=== PATIENT | female | born 1950 | race Caucasian/White ===

== ENCOUNTER 2017-08-08 18:07 | Inpatient (IN) ==
[2017-08-13] MEDS ORDERED: Furosemide 40 MG TABLET PO PRN (16:16)
[2017-08-13] MEDS ORDERED: Dextrose Gel 15 GM/37.5 ML TUBE PO PRN ×2 (16:25)
[2017-08-13] MEDS ORDERED: D5% in Water 1,000 ML IVC PRN (16:25)
[2017-08-13] MEDS ORDERED: *HR* Dextrose 50 % in Water (Syg) 50 ML SYRINGE IVP PRN (16:25)
[2017-08-13] MEDS: Gabapentin 100 MG CAPSULE PO SCH (19:56)
[2017-08-13] MEDS: Linezolid 600 MG TABLET PO SCH (20:15)
[2017-08-14] MEDS: *HR* HYDROcodone/Acet 5/325 mg TABLET PO PRN (09:26)
[2017-08-14] MEDS: Linezolid 600 MG TABLET PO SCH ×2 (09:27→20:43)
[2017-08-14] MEDS: Fluticasone Propionate Nasal 50 MCG/SPRAY BOTTLE NS SCH (09:28)
[2017-08-14] MEDS: Silvasorb 44.4 ML TUBE TP SCH (09:28)
[2017-08-14] MEDS: Aspirin Enteric Coated 81 MG Tablet PO SCH (13:55)
--- NOTE | 2017-08-14 15:23 | Internal Med History&Physical ---
Date of Encounter: 08/14/17 Time of Encounter: 15:19 Assessment and Plan (1) Morbid obesity with BMI of 50.0-59.9, adult Current visit: Yes Status: Chronic provide education. (2) UTI (urinary tract infection) Current visit: Yes Status: Acute continue Cipro. will monitor. Qualifiers: Urinary tract infection type: acute pyelonephritis Qualified Code(s): N10 - Acute pyelonephritis (3) Atrial fibrillation Current visit: Yes Status: Chronic rate and rythm stable. Qualifiers: Atrial fibrillation type: paroxysmal Qualified Code(s): I48.0 - Paroxysmal atrial fibrillation (4) Diabetes Current visit: Yes Status: Chronic monitor FSBS> Qualifiers: Diabetes mellitus type: type 2 Diabetes mellitus care home insulin use: without termite exterminator use Diabetes mellitus complication status: with hyperglycemia Qualified Code(s): E11.65 - Type 2 diabetes mellitus with hyperglycemia Internal Medicine - H&P: HPI Admitted From: Intrahospital Transfer Plans for Post Hospital Care: Home History of present illness: Ms. Doherty is a 66 year old female with past medical history that includes arthritis, asthma, atrial fibrillation, CAD with prior Stent. Multiple TIAs, CHF, COPD, diabetes 2, Gerd, kidney stones, anxiety, depression, panic disorder. Also has history of recurrent UTIs. Presented to [facility] with complains of suprapubic and flank pain. Was found to have a stage II sacral ulcer. CT of pelvis and abdomen revealed presence of right- sided nephrolithiasis as well as cystitis. Was started on cefipime. denies fever, chills, NVD. denies flank pain. Past Med Surg Social Fam HX - Past Medical History Medical history: arthritis, asthma, atrial fibrillation, CHF, COPD, diabetes, GERD, kidney stones, other Psychiatric history: anxiety, depression, panic disorder - Past Surgical History Surgical History: angioplasty/stent, cholecystectomy, hysterectomy - Social History Smoking Status: Never smoker Smokeless Tobacco Status: No Alcohol use: none Drug use: none - Family History Brother Living Status: Still Living Hx Family Cardiac Disorders: Yes (HTN) Hx Family Endocrine Disorder: Yes (Diabetes) Mother Living Status: Hx Family Cardiac Disorders: Yes (htn) Hx Family Endocrine Disorder: Yes (dm) Father Living Status: Hx Family Cardiac Disorders: Yes (CABG x3 HTN diabetes) Hx Family Respiratory Disorders: No Hx Family Cancer: No Hx Family GI Disorders: No Hx Family Endocrine Disorder: Yes Hx Family Neuromuscular Disorders: No Hx Family Neurologic Disorders: No Hx Family HEENT Disorders: No Hx Family Autoimmune Disorders: No Internal Medicine - H&P: Meds Promethazine [Phenergan] 25 mg PO Q6HR PRN 02/19/17 [History] HYDROcodone/Acet 5/325 mg [[place] 5-325 mg] 1 tab PO Q6H PRN #28 tablet 02/23/17 [Rx] Fluticasone Propionate [Allergy Relief] 2 spr NS DAILY 08/06/17 [History] Furosemide [Lasix] 40 mg PO DAILY PRN 08/06/17 [History] Carvedilol [Coreg] 3.125 mg PO BIDWM #10 tablet 08/10/17 [Rx] Aspirin [Lo-Dose Aspirin EC] 81 mg PO DAILY 08/13/17 [History] 3 Allergy/AdvReac Type Severity Reaction Status Date / Time levofloxacin [From Levaquin] Allergy Hives Verified 05/30/16 08:50 Penicillins Allergy Blister Verified 05/30/16 08:50 prednisone Allergy See Verified 05/30/16 08:50 Comments Sulfa (Sulfonamide Allergy Hives Verified 05/30/16 08:50 Antibiotics) egg AdvReac Severe Throat Verified 05/30/16 08:50 swelling nitrofurantoin AdvReac Severe Bruising Verified 05/30/16 08:50 [From Macrobid] on arms All Systems PM: A 10-system review of systems was performed and is negative for pertinent findings except as documented above in the HPI. - Constitutional Constitutional: no chills, no fever(s), no night sweats - EENT Eyes: no change in vision, no discharge, no pain, no photophobia Ears: no ear discharge, no ear pain, no tinnitus Nose, mouth and throat: no dysphagia, no nasal discharge, no neck pain, no sore throat - Cardiovascular Cardiovascular ROS IM: no chest pain, no diaphoresis, no dyspnea, no lightheadedness, no palpitations, no syncope - Respiratory Respiratory: no cough, no dyspnea, no wheezing, no excessive phlegm production - Gastrointestinal Gastrointestinal: no abdominal pain, no diarrhea, no hematemesis, no hematochezia, no melena, no nausea, no vomiting - Genitourinary Genitourinary: no change in urinary stream, no dysuria, no flank pain, no hematuria - Musculoskeletal Musculoskeletal ROS IM: no numbness, no tingling - Integumentary Integumentary IM: no rash, no unusual bruising - Neurological Neurological ROS: no confusion, no convulsions, no focal weakness, no numbness, no tingling, no tremor(s) - Hematologic/Lymphatic Hematologic/Lymphatic: no easy bruising - Constitutional Vitals: Temp Pulse Resp BP Pulse Ox 98.2 F 84 16 96/62 95 08/14/17 12:00 08/14/17 12:00 08/14/17 12:00 08/14/17 12:00 08/14/17 12:00 General appearance: Present: cooperative, A&O X 3, morbidly obese, pleasant, answers questions appropriately - Head Head exam: Present: atraumatic, normocephalic - Eye Eye exam: Present: PERRL, conjuntiva pink, sclera anicteric Pupils: Present: PERRL - Neck Neck exam general surgery: Present: supple, trachea midline. Absent: lymphadenopathy - Respiratory Respiratory exam: Present: CTAB. Absent: accessory muscle use, rales, rhonchi, wheezes - Cardiovascular Cardiovascular exam: Present: RRR, +S1, +S2. Absent: diastolic murmur, gallop, rubs, systolic murmur - GI/Abdominal GI/Abdominal exam: Present: normal bowel sounds, soft, no peritoneal signs. Absent: distended, tenderness - Additional comments: no CVA tenderness. - Extremities Exam Extremities exam: Present: warm, radial pulses palpable and symmetrical. Absent : calf tenderness, cyanotic, pedal edema - Neurological Exam Neurological exam: Present: CN II-XII intact, oriented X3, no focal deficits. Absent: pronater drift, facial droop, speech deficit - Skin Skin exam: Present: dry, intact
--- NOTE | 2017-08-14 16:14 | Electrocardiograph Report ---
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
[2017-08-14] MEDS: Gabapentin 100 MG CAPSULE PO SCH (20:42)
[2017-08-15] MEDS: *HR* HYDROcodone/Acet 5/325 mg TABLET PO PRN (08:52)
[2017-08-15] MEDS: Silvasorb 44.4 ML TUBE TP SCH (08:53)
[2017-08-15] MEDS: Aspirin Enteric Coated 81 MG Tablet PO SCH (08:53)
[2017-08-15] MEDS: Linezolid 600 MG TABLET PO SCH ×2 (08:53→21:24)
[2017-08-15] MEDS: Fluticasone Propionate Nasal 50 MCG/SPRAY BOTTLE NS SCH (08:54)
--- NOTE | 2017-08-15 14:58 | Internal Med Progress Note ---
Date of Encounter: 08/15/17 Time of Encounter: 14:57 - Subjective Interval history: See note from earlier today. Will also add Zofran as nausea persists. - Constitutional Vitals: Temp Pulse Resp BP Pulse Ox 97.9 F 75 16 110/65 97 08/15/17 07:28 08/15/17 07:28 08/15/17 07:28 08/15/17 07:28 08/15/17 07:28 General appearance: Present: cooperative, A&O X 3, morbidly obese, pleasant, answers questions appropriately - VTE Documentation of Mechanical Device: Graduated compression elastic hosiery Consult Discharge Plan - Plan Referrals: NONE,PCP [Primary Care Provider] -
[2017-08-15 15:49] LABS: Basophils % 0.5 %; Eosinophils # 0.5 K/mcL (0.0-0.6); Eosinophils % 6.3 %; Hematocrit 35.8 % (35.3-44.9); Hemoglobin 12.2 g/dL (11.5-15.4); Immature Granulocytes % 0.2 % (0-4); Lymphocytes # 2.1 K/mcL (0.6-4.6); Lymphocytes % 25.5 %; Mean Corpuscular HGB Conc 34.1 g/dL (31.6-35.5); Mean Corpuscular Volume 90.9 fL (83.0-100.0); Mean Platelet Volume 10.3 fL (9.4-12.4); Monocytes # 0.6 K/mcL (0.0-1.3); Monocytes % 7.6 %; Neutrophils # 4.9 K/mcL (1.6-8.9); Platelet Count 146 K/mcL (140-400); Red Blood Count 3.94 M/mcL (3.82-4.97); Red Cell Distribution Width 14.8 % (11.5-14.5); Segmented Neutrophils % 59.9 %
[2017-08-15 16:17] LABS: BUN/Creatinine Ratio 18 (6-26); Blood Urea Nitrogen 12 mg/dL (8-23); Calcium 8.9 mg/dL (8.6-10.3); Carbon Dioxide 19 mEq/L (23-29); Chloride 109 mEq/L (98-107); Glucose 108 mg/dL (70-105); Osmolality,Calculated 284 (280-300); Potassium 3.4 mEq/L (3.5-5.1); Sodium 137 mEq/L (136-145); eGFR For African Americans > 60 (> 60); eGFR For Non-African Americans > 60 (> 60)
[2017-08-15] MEDS: Gabapentin 100 MG CAPSULE PO SCH (21:24)
[2017-08-16 07:34] LABS: BUN/Creatinine Ratio 19 (6-26); Blood Urea Nitrogen 11 mg/dL (8-23); Calcium 8.5 mg/dL (8.6-10.3); Carbon Dioxide 21 mEq/L (23-29); Chloride 110 mEq/L (98-107); Glucose 107 mg/dL (70-105); Osmolality,Calculated 286 (280-300); Potassium 3.2 mEq/L (3.5-5.1); Sodium 138 mEq/L (136-145); eGFR For African Americans > 60 (> 60); eGFR For Non-African Americans > 60 (> 60)
[2017-08-16 07:46] LABS: Basophils % 0.5 %; Eosinophils # 0.5 K/mcL (0.0-0.6); Eosinophils % 6.8 %; Hematocrit 31.3 % (35.3-44.9); Hemoglobin 10.8 g/dL (11.5-15.4); Immature Granulocytes % 0.3 % (0-4); Lymphocytes # 2.2 K/mcL (0.6-4.6); Lymphocytes % 30.3 %; Mean Corpuscular HGB Conc 34.5 g/dL (31.6-35.5); Mean Corpuscular Hemoglobin 31.1 pg (28.0-33.3); Mean Corpuscular Volume 90.2 fL (83.0-100.0); Monocytes # 0.6 K/mcL (0.0-1.3); Monocytes % 8.2 %; Neutrophils # 3.9 K/mcL (1.6-8.9); Platelet Count 150 K/mcL (140-400); Red Blood Count 3.47 M/mcL (3.82-4.97); Red Cell Distribution Width 14.7 % (11.5-14.5); Segmented Neutrophils % 53.9 %
[2017-08-16] MEDS: Fluticasone Propionate Nasal 50 MCG/SPRAY BOTTLE NS SCH (09:05)
[2017-08-16] MEDS: Linezolid 600 MG TABLET PO SCH ×3 (09:06→22:41)
[2017-08-16] MEDS: Aspirin Enteric Coated 81 MG Tablet PO SCH ×2 (09:08→18:04)
[2017-08-16] MEDS: Silvasorb 44.4 ML TUBE TP SCH (09:09)
[2017-08-16] MEDS ORDERED: Magnesium Sulfate 1 GM in D5% in Water 100 ML IVPB ONE (13:02)
--- NOTE | 2017-08-16 13:27 | Internal Med Progress Note ---
Date of Encounter: 08/16/17 Time of Encounter: 13:25 - Assessment and plan (1) Pyelonephritis Current Visit: Yes Status: Acute Assessment and plan: No acute issues. Patient does continue to complain of nausea and abdominal cramping. Patient to have lithotripsy in the upcoming week. Afebrile. We will continue with current plan of care (2) Nausea Current Visit: Yes Status: Chronic Assessment and plan: Patient continues to have intermittent nausea and this morning had vomited. We will continue with Zofran when necessary. We will obtain lipase/amylase and morning labs (3) Physical deconditioning Current Visit: No Status: Acute Assessment and plan: Patient continues with generalized weakness. No focal neurological deficits noted. She has been missing some of her physical therapy due to nausea. Continue with current plan of care (4) Chronic diastolic (congestive) heart failure Current Visit: No Status: Chronic Assessment and plan: No acute issues. Lungs are clear throughout. No complaints of dyspnea or productive cough. No palpitations. We will continue with current medications. - Subjective Interval history: Patient appears relaxed, but complaints of intermittent nausea. Patient states that this morning she became nauseated after breakfast and vomited. States that she continues to have intermittent nausea throughout the day. Patient also complains about burning type pain to her her lips and tongue, which appears very dry. Patient states that she occasionally has some abdominal cramping, stating that she continues to have some constipation. Patient does state that she had bowel movement yesterday. Patient states that physical therapy has been going well and that prior to admission she had difficulty walking. Patient reportedly did not do therapy today because of nausea. Patient is being prepared for a lithotripsy in the upcoming week. Afebrile - Constitutional Vitals: Temp Pulse Resp BP Pulse Ox 98.1 F 84 20 148/80 98 08/16/17 07:57 08/16/17 07:57 08/16/17 07:57 08/16/17 08:56 08/16/17 07:57 General appearance: Present: cooperative, A&O X 3, morbidly obese, pleasant, answers questions appropriately - Head Head exam: Present: atraumatic, normocephalic Additional comments: Lips and oral mucosa are very dry, but normal in color - Eye Eye exam: Present: PERRL, conjuntiva pink, sclera anicteric Pupils: Present: PERRL - Neck Neck exam general surgery: Present: supple, trachea midline. Absent: lymphadenopathy - Respiratory Respiratory exam: Present: CTAB. Absent: accessory muscle use, rales, rhonchi, wheezes Additional comments: Diminished breath sounds to bases. Otherwise respiratory effort is relaxed - Cardiovascular Cardiovascular exam: Present: RRR, +S1, +S2. Absent: diastolic murmur, gallop, rubs, systolic murmur - GI/Abdominal GI/Abdominal exam: Present: normal bowel sounds, soft, no peritoneal signs. Absent: distended, tenderness Additional comments: Abdomen is large, soft and nondistended with bowel sounds all quadrants - Extremities Exam Extremities exam: Present: warm, radial pulses palpable and symmetrical. Absent : calf tenderness, cyanotic, pedal edema - Neurological Exam Neurological exam: Present: CN II-XII intact, oriented X3, no focal deficits. Absent: pronater drift, facial droop, speech deficit - Skin Skin exam: Present: dry, intact Internal Medicine: Result - Labs CBC & Chem 7: 08/16/17 07:07 08/16/17 07:07 Labs: Short CBC 08/15/17 08/16/17 Range/Units 15:44 07:07 WBC 8.2 7.3 (4.3-11.1) K/mcL Hgb 12.2 10.8 L (11.5-15.4) g/dL Hct 35.8 31.3 L (35.3-44.9) % Plt Count 146 150 (140-400) K/mcL Neutrophils # 4.9 3.9 (1.6-8.9) K/mcL BMP 08/15/17 08/16/17 15:44 07:07 Sodium 137 138 Potassium 3.4 L 3.2 L Chloride 109 H 110 H Carbon Dioxide 19 L 21 L BUN 12 11 Creatinine 0.66 0.59 L Glucose 108 H 107 H Calcium 8.9 8.5 L - VTE Documentation of Mechanical Device: Graduated compression elastic hosiery Consult Discharge Plan - Plan Referrals: NONE,PCP [Primary Care Provider] -
[2017-08-16] MEDS: *HR* Heparin 5,000 UNIT/ML VIAL SQ SCH ×2 (13:49→22:41)
[2017-08-16] MEDS: Gabapentin 100 MG CAPSULE PO SCH (22:41)
[2017-08-17] MEDS: *HR* Heparin 5,000 UNIT/ML VIAL SQ SCH ×3 (07:00→21:54)
[2017-08-17] MEDS: *HR* HYDROcodone/Acet 5/325 mg TABLET PO PRN (09:36)
[2017-08-17] MEDS: Linezolid 600 MG TABLET PO SCH ×3 (09:36→21:54)
[2017-08-17] MEDS: Aspirin Enteric Coated 81 MG Tablet PO SCH (09:38)
[2017-08-17] MEDS: Fluticasone Propionate Nasal 50 MCG/SPRAY BOTTLE NS SCH (09:40)
[2017-08-17] MEDS: Silvasorb 44.4 ML TUBE TP SCH (09:42)
--- NOTE | 2017-08-17 10:57 | Internal Med Progress Note ---
Date of Encounter: 08/17/17 Time of Encounter: 10:55 - Assessment and plan (1) Pyelonephritis Current Visit: Yes Status: Acute Assessment and plan: No acute issues. Patient does continue to complain of nausea. Patient denies any dysuria. We will continue on Zyvox for UTI.. Patient to have lithotripsy in the upcoming week. Afebrile. We will continue with current plan of care (2) Nausea Current Visit: Yes Status: Chronic Assessment and plan: Patient continues to have intermittent nausea. No reported vomiting. We will continue with Zofran when necessary. Lipase/amylase was normal on morning labs. (3) Chronic diastolic (congestive) heart failure Current Visit: No Status: Chronic Assessment and plan: No acute issues. Lungs are clear throughout. No complaints of dyspnea or productive cough. No palpitations. We will continue with current medications. - Time Spent With Patient less than 15 minutes - Subjective Interval history: Patient appears relaxed, but complaints of intermittent nausea. Patient denies any vomiting since yesterday. Denies any abdominal cramping or change in bowel habits. Patient's labs this morning showed amylase/lipase normal. Patient with complaints of slight generalized discomforts. Denies any shortness of breath. Patient being prepared for upcoming lithotripsy. - Constitutional Vitals: Temp Pulse Resp BP Pulse Ox 97.9 F 78 17 116/79 96 08/17/17 07:45 08/17/17 07:45 08/17/17 07:45 08/17/17 07:45 08/17/17 07:45 General appearance: Present: cooperative, A&O X 3, morbidly obese, pleasant, answers questions appropriately - Head Head exam: Present: atraumatic, normocephalic Additional comments: Patient's lips and oral mucosa are very dry - Eye Eye exam: Present: PERRL, conjuntiva pink, sclera anicteric Pupils: Present: PERRL - Neck Neck exam general surgery: Present: supple, trachea midline. Absent: lymphadenopathy - Respiratory Respiratory exam: Present: CTAB. Absent: accessory muscle use, rales, rhonchi, wheezes - Cardiovascular Cardiovascular exam: Present: irregular rhythm, RRR, +S1, +S2. Absent: diastolic murmur, gallop, rubs, systolic murmur Additional comments: Patient's ventricular rate is less than 80 bpm. - GI/Abdominal GI/Abdominal exam: Present: normal bowel sounds, soft, no peritoneal signs. Absent: distended, tenderness - Extremities Exam Extremities exam: Present: pedal edema, warm, radial pulses palpable and symmetrical. Absent: calf tenderness, cyanotic Additional comments: Bilateral legs with +2 edema - Neurological Exam Neurological exam: Present: CN II-XII intact, oriented X3, no focal deficits. Absent: pronater drift, facial droop, speech deficit - Skin Skin exam: Present: dry, intact Internal Medicine: Result - Labs CBC & Chem 7: 08/16/17 07:07 08/16/17 07:07 - VTE Documentation of Mechanical Device: Graduated compression elastic hosiery Consult Discharge Plan - Plan Referrals: NONE,PCP [Primary Care Provider] -
[2017-08-17 11:25] LABS: Alanine Aminotransferase 21 Units/L (7-52); Albumin 2.6 g/dL (3.5-5.7); Albumin/Globulin Ratio 0.9 (1.1-2.2); Alkaline Phosphatase 98 Units/L (34-104); Aspartate Amino Transferase 39 Units/L (13-39); BUN/Creatinine Ratio 18 (6-26); Bilirubin,Total 0.6 mg/dL (0.3-1.0); Blood Urea Nitrogen 10 mg/dL (8-23); Calcium 8.5 mg/dL (8.6-10.3); Carbon Dioxide 18 mEq/L (23-29); Chloride 110 mEq/L (98-107); Globulin 2.9 g/dL (2.4-3.5); Glucose 106 mg/dL (70-105); Osmolality,Calculated 287 (280-300); Potassium 3.2 mEq/L (3.5-5.1); Sodium 139 mEq/L (136-145); Total Protein 5.5 g/dL (6.4-8.9); eGFR For African Americans > 60 (> 60); eGFR For Non-African Americans > 60 (> 60)
[2017-08-17] MEDS: Gabapentin 100 MG CAPSULE PO SCH (21:54)
[2017-08-17] MEDS: Nystatin POWDER 30 GM BOTTLE TP SCH (21:54)
[2017-08-18 05:37] LABS: Hematocrit 31.6 % (35.3-44.9); Hemoglobin 10.8 g/dL (11.5-15.4); Mean Corpuscular HGB Conc 34.2 g/dL (31.6-35.5); Mean Corpuscular Hemoglobin 30.8 pg (28.0-33.3); Mean Platelet Volume 10.7 fL (9.4-12.4); Platelet Count 134 K/mcL (140-400); Red Blood Count 3.51 M/mcL (3.82-4.97)
[2017-08-18 06:02] LABS: Alanine Aminotransferase 22 Units/L (7-52); Albumin 2.6 g/dL (3.5-5.7); Albumin/Globulin Ratio 0.9 (1.1-2.2); Alkaline Phosphatase 100 Units/L (34-104); Aspartate Amino Transferase 41 Units/L (13-39); BUN/Creatinine Ratio 15 (6-26); Bilirubin,Total 0.6 mg/dL (0.3-1.0); Blood Urea Nitrogen 9 mg/dL (8-23); Calcium 8.3 mg/dL (8.6-10.3); Carbon Dioxide 21 mEq/L (23-29); Chloride 111 mEq/L (98-107); Glucose 106 mg/dL (70-105); Magnesium 1.6 mg/dL (1.6-2.6); Osmolality,Calculated 287 (280-300); Potassium 3.2 mEq/L (3.5-5.1); Sodium 139 mEq/L (136-145); Total Protein 5.6 g/dL (6.4-8.9); eGFR For African Americans > 60 (> 60); eGFR For Non-African Americans > 60 (> 60)
[2017-08-18] MEDS: *HR* Heparin 5,000 UNIT/ML VIAL SQ SCH ×3 (06:08→22:25)
[2017-08-18] MEDS ORDERED: Magnesium Oxide 400 MG TABLET PO SCH (09:00)
[2017-08-18] MEDS: Nystatin POWDER 30 GM BOTTLE TP SCH ×2 (09:28→19:42)
[2017-08-18] MEDS: Fluticasone Propionate Nasal 50 MCG/SPRAY BOTTLE NS SCH (09:28)
[2017-08-18] MEDS: Silvasorb 44.4 ML TUBE TP SCH (09:28)
[2017-08-18] MEDS: Linezolid 600 MG TABLET PO SCH ×2 (09:28→19:42)
--- NOTE | 2017-08-18 14:53 | Internal Med Progress Note ---
Date of Encounter: 08/18/17 Time of Encounter: 14:51 - Assessment and plan (1) UTI (urinary tract infection) due to urinary indwelling catheter Current Visit: Yes Status: Acute Assessment and plan: This is possibly the etiology of her current symptoms. We will continue as planned. Biotics until S wall is scheduled for middle of next week. Qualifiers: Indwelling urinary catheter type: indwelling urethral catheter Encounter type: initial encounter Qualified Code(s): T83.511A - Infection and inflammatory reaction due to indwelling urethral catheter, initial encounter; N39.0 - Urinary tract infection, site not specified; N39.0 - Urinary tract infection, site not specified (2) Acute kidney injury Current Visit: Yes Status: Acute Assessment and plan: This may be duplicated. Will follow. To be rechecked on Sunday. Will give dose of Lasix and see how she responds. (3) Diabetes Current Visit: Yes Status: Chronic Assessment and plan: Clinically stable. We will continue home regimen and follow. Oral intake is questionable given her nausea. Qualifiers: Diabetes mellitus type: type 2 Diabetes mellitus intermission coordinator insulin use: without care home use Diabetes mellitus complication status: with hyperglycemia Qualified Code(s): E11.65 - Type 2 diabetes mellitus with hyperglycemia - Time Spent With Patient Clinically stable. We will continue home regimen and follow. Repeated on Sunday. 25 - 35 minutes - Subjective Interval history: Still with nausea which nursing is uncertain of etiology. Not related to medicines. We will continue antibiotics until ESWL, scheduled for Sunday - Constitutional Vitals: Temp Pulse Resp BP Pulse Ox 97.6 F 89 20 102/58 93 08/18/17 08:40 08/18/17 08:40 08/18/17 08:40 08/18/17 08:40 08/18/17 08:40 General appearance: Present: cooperative, pleasant, answers questions appropriately Exam: Examination: (Except as mentioned above): General: In no apparent distress. Alert and oriented 3. Nondiaphoretic. Head: Atraumatic and normocephalic. Respiratory: No use of accessory muscles. Lungs are clear throughout. Normal airflow. Cardiovascular: Regular rate and rhythm without murmur appreciated. Abdomen: Bowel sounds are normal. No hepatosplenomegaly mass or tenderness appreciated. Severe tenderness noted but this is totally normal and patient is distracted. Tenderness is therefore not definite. Obese and therefore difficult to palpate deeply. Patient is examined upright in chair and this also limits exam. Extremities: No cyanosis or clubbing but seems that edema is slightly worse. Skin: Warm and non-diaphoretic with no new lesions noted. Internal Medicine: Result - Labs CBC & Chem 7: 08/18/17 05:15 08/18/17 05:15 Labs: Short CBC 08/18/17 Range/Units 05:15 WBC 6.3 (4.3-11.1) K/mcL Hgb 10.8 L D (11.5-15.4) g/dL Hct 31.6 L (35.3-44.9) % Plt Count 134 L (140-400) K/mcL BMP 08/18/17 05:15 Sodium 139 Potassium 3.2 L Chloride 111 H Carbon Dioxide 21 L BUN 9 Creatinine 0.61 Glucose 106 H Calcium 8.3 L Liver Function 08/18/17 Range/Units 05:15 Total Bilirubin 0.6 (0.3-1.0) mg/dL AST 41 H (13-39) Units/L ALT 22 (7-52) Units/L Alkaline Phosphatase 100 (34-104) Units/L Albumin 2.6 L (3.5-5.7) g/dL - VTE Documentation of Mechanical Device: Graduated compression elastic hosiery Consult Discharge Plan - Plan Referrals: NONE,PCP [Primary Care Provider] -
[2017-08-18] MEDS ORDERED: Magnesium Sulfate 1 GM in D5% in Water 100 ML IVPB ONE (15:02)
[2017-08-18] MEDS: Magnesium Oxide 400 MG TABLET PO SCH ×2 (16:36→19:01)
[2017-08-18] MEDS: Gabapentin 100 MG CAPSULE PO SCH (19:42)
[2017-08-19] MEDS: *HR* HYDROcodone/Acet 5/325 mg TABLET PO PRN ×2 (05:25→12:13)
[2017-08-19] MEDS: *HR* Heparin 5,000 UNIT/ML VIAL SQ SCH ×3 (05:25→21:31)
[2017-08-19] MEDS: Fluticasone Propionate Nasal 50 MCG/SPRAY BOTTLE NS SCH (11:27)
[2017-08-19] MEDS: Linezolid 600 MG TABLET PO SCH ×2 (11:27→21:30)
[2017-08-19] MEDS: Magnesium Oxide 400 MG TABLET PO SCH ×2 (11:28→21:30)
[2017-08-19] MEDS: Nystatin POWDER 30 GM BOTTLE TP SCH ×2 (11:28→21:31)
[2017-08-19] MEDS: Silvasorb 44.4 ML TUBE TP SCH (11:29)
[2017-08-19] MEDS: Gabapentin 100 MG CAPSULE PO SCH (21:17)
[2017-08-20] MEDS: *HR* Heparin 5,000 UNIT/ML VIAL SQ SCH ×3 (04:09→21:37)
[2017-08-20 07:40] LABS: Basophils # 0.1 K/mcL (0.0-0.2); Basophils % 0.8 %; Eosinophils # 0.2 K/mcL (0.0-0.6); Eosinophils % 3.7 %; Hematocrit 32.2 % (35.3-44.9); Immature Granulocytes % 0.2 % (0-4); Lymphocytes # 1.7 K/mcL (0.6-4.6); Lymphocytes % 28.8 %; Mean Corpuscular HGB Conc 34.2 g/dL (31.6-35.5); Mean Corpuscular Hemoglobin 30.6 pg (28.0-33.3); Mean Corpuscular Volume 89.4 fL (83.0-100.0); Mean Platelet Volume 10.5 fL (9.4-12.4); Monocytes # 0.5 K/mcL (0.0-1.3); Monocytes % 9.1 %; Neutrophils # 3.4 K/mcL (1.6-8.9); Platelet Count 137 K/mcL (140-400); Red Cell Distribution Width 15.1 % (11.5-14.5); Segmented Neutrophils % 57.4 %
[2017-08-20 08:02] LABS: BUN/Creatinine Ratio 14 (6-26); Blood Urea Nitrogen 8 mg/dL (8-23); Calcium 8.2 mg/dL (8.6-10.3); Carbon Dioxide 23 mEq/L (23-29); Chloride 104 mEq/L (98-107); Glucose 110 mg/dL (70-105); Osmolality,Calculated 279 (280-300); Potassium 3.4 mEq/L (3.5-5.1); Sodium 135 mEq/L (136-145); eGFR For African Americans > 60 (> 60); eGFR For Non-African Americans > 60 (> 60)
[2017-08-20] MEDS: Fluticasone Propionate Nasal 50 MCG/SPRAY BOTTLE NS SCH (10:30)
[2017-08-20] MEDS: Ondansetron ODT 4 MG TAB.RAPDIS SL PRN (10:30)
[2017-08-20] MEDS: *HR* HYDROcodone/Acet 5/325 mg TABLET PO PRN (10:30)
[2017-08-20] MEDS: Nystatin POWDER 30 GM BOTTLE TP SCH ×2 (10:30→21:37)
[2017-08-20] MEDS: Linezolid 600 MG TABLET PO SCH ×2 (10:31→21:36)
[2017-08-20] MEDS: Magnesium Oxide 400 MG TABLET PO SCH ×3 (10:31→21:35)
[2017-08-20] MEDS: Silvasorb 44.4 ML TUBE TP SCH (10:31)
--- NOTE | 2017-08-20 11:51 | Internal Med Progress Note ---
Date of Encounter: 08/20/17 Time of Encounter: 11:47 - Assessment and plan (1) Pyelonephritis Current Visit: Yes Status: Acute Assessment and plan: No acute issues. Patient does continue to complain of nausea. Patient denies any dysuria. We will continue on Zyvox for UTI.. Patient to have lithotripsy in the upcoming week. Afebrile. We will continue with current plan of care (2) Nausea Current Visit: Yes Status: Chronic Assessment and plan: Patient continues to have intermittent nausea. No reported vomiting. We will continue with Zofran when necessary. Lipase/amylase was normal. Patient continues to have diarrhea. Will send stool for C-diff. (3) Chronic diastolic (congestive) heart failure Current Visit: No Status: Chronic Assessment and plan: No acute issues. Lungs are clear throughout. No complaints of dyspnea or productive cough. No palpitations. We will continue with current medications. (4) Skin breakdown Current Visit: Yes Status: Acute Assessment and plan: Sacral shearing type breakdown the sacrum. Will continue with frequent repositioning and will apply to term type dressing. We will have wound care evaluate - Time Spent With Patient less than 15 minutes - Subjective Interval history: Patient appears relaxed, but complaints of intermittent nausea. Patient denies any vomiting. Patient continues with diarrhea. Patient also noted to have moderate amount of shearing type skin breakdown on her sacrum. - Constitutional Vitals: Temp Pulse Resp BP Pulse Ox 98.4 F 88 16 117/70 96 08/20/17 07:26 08/20/17 07:26 08/20/17 07:26 08/20/17 07:26 08/20/17 07:26 General appearance: Present: cooperative, A&O X 3, pleasant, answers questions appropriately - Head Head exam: Present: atraumatic, normocephalic - Eye Eye exam: Present: PERRL, conjuntiva pink, sclera anicteric Pupils: Present: PERRL - Neck Neck exam general surgery: Present: supple, trachea midline. Absent: lymphadenopathy - Respiratory Respiratory exam: Present: CTAB. Absent: accessory muscle use, rales, rhonchi, wheezes Additional comments: diminished breath sounds to basilar britton, otherwise CTA. Resp status relaxed. - Cardiovascular Cardiovascular exam: Present: RRR, +S1, +S2. Absent: diastolic murmur, gallop, rubs, systolic murmur - GI/Abdominal GI/Abdominal exam: Present: normal bowel sounds, soft, no peritoneal signs. Absent: distended, tenderness - Extremities Exam Extremities exam: Present: warm, radial pulses palpable and symmetrical. Absent : calf tenderness, cyanotic, pedal edema - Neurological Exam Neurological exam: Present: CN II-XII intact, oriented X3, no focal deficits. Absent: pronater drift, facial droop, speech deficit - Skin Skin exam: Present: dry, intact Additional comments: Shearing type of skin breakdown to the sacral area. Internal Medicine: Result - Labs CBC & Chem 7: 08/20/17 06:56 08/20/17 06:56 Labs: Short CBC 08/20/17 Range/Units 06:56 WBC 5.9 (4.3-11.1) K/mcL Hgb 11.0 L (11.5-15.4) g/dL Hct 32.2 L (35.3-44.9) % Plt Count 137 L (140-400) K/mcL Neutrophils # 3.4 (1.6-8.9) K/mcL BMP 08/20/17 06:56 Sodium 135 L Potassium 3.4 L Chloride 104 Carbon Dioxide 23 BUN 8 Creatinine 0.59 L Glucose 110 H Calcium 8.2 L - VTE Documentation of Mechanical Device: Graduated compression elastic hosiery Consult Discharge Plan - Plan Referrals: NONE,PCP [Primary Care Provider] -
--- NOTE | 2017-08-20 17:35 | Internal Med Progress Note ---
Date of Encounter: 08/19/17 Time of Encounter: 18:30 - Assessment and plan (1) UTI (urinary tract infection) due to urinary indwelling catheter Current Visit: Yes Status: Acute Assessment and plan: This is possibly the etiology of her current symptoms. We will continue as planned. Biotics until S wall is scheduled for middle of next week. Qualifiers: Indwelling urinary catheter type: indwelling urethral catheter Encounter type: initial encounter Qualified Code(s): T83.511A - Infection and inflammatory reaction due to indwelling urethral catheter, initial encounter; N39.0 - Urinary tract infection, site not specified; N39.0 - Urinary tract infection, site not specified (2) Acute kidney injury Current Visit: Yes Status: Acute Assessment and plan: Will follow. To be rechecked on Sunday. Will give dose of Lasix and see how she responds. (3) Diabetes Current Visit: Yes Status: Chronic Assessment and plan: Clinically stable. We will continue home regimen and follow. Oral intake is questionable given her nausea. Qualifiers: Diabetes mellitus type: type 2 Diabetes mellitus penitentiary insulin use: without penitentiary use Diabetes mellitus complication status: with hyperglycemia Qualified Code(s): E11.65 - Type 2 diabetes mellitus with hyperglycemia - Time Spent With Patient 25 - 35 minutes - Subjective Interval history: Still with nausea but much better than yesterday. We will continue antibiotics until ESWL, scheduled for Sunday Patient has no complaint of chest discomfort, dyspnea, orthopnea, palpitations, nausea or vomiting, constipation or diarrhea, other changes in bowel habits, difficulty with urination, rash or itching, or other new complaints, except as mentioned above. Review of systems is otherwise unremarkable. - Constitutional Vitals: Temp Pulse Resp BP Pulse Ox 98.4 F 88 16 117/70 96 08/20/17 07:26 08/20/17 07:26 08/20/17 07:26 08/20/17 07:26 08/20/17 07:26 General appearance: Present: cooperative, pleasant, answers questions appropriately Exam: Examination: (Except as mentioned above): General: In no apparent distress. Alert and oriented 3. Nondiaphoretic. Head: Atraumatic and normocephalic. Respiratory: No use of accessory muscles. Lungs are clear throughout. Normal airflow. Cardiovascular: Regular rate and rhythm without murmur appreciated. Abdomen: Bowel sounds are normal. No hepatosplenomegaly mass or tenderness appreciated. Obese and therefore difficult to palpate deeply. Patient is examined upright in chair and this also limits exam. Extremities: No cyanosis clubbing or edema. Skin: Warm and non-diaphoretic with no new lesions noted. Internal Medicine: Result - Labs CBC & Chem 7: 08/20/17 06:56 08/20/17 06:56 Labs: Short CBC 08/20/17 Range/Units 06:56 WBC 5.9 (4.3-11.1) K/mcL Hgb 11.0 L (11.5-15.4) g/dL Hct 32.2 L (35.3-44.9) % Plt Count 137 L (140-400) K/mcL Neutrophils # 3.4 (1.6-8.9) K/mcL BMP 08/20/17 06:56 Sodium 135 L Potassium 3.4 L Chloride 104 Carbon Dioxide 23 BUN 8 Creatinine 0.59 L Glucose 110 H Calcium 8.2 L - VTE Documentation of Mechanical Device: Graduated compression elastic hosiery Consult Discharge Plan - Plan Instructions: Clostridium Difficile Infection (DC) Referrals: NONE,PCP [Primary Care Provider] -
[2017-08-20] MEDS: metroNIDAZOLE 500 MG TABLET PO SCH ×2 (17:50→21:35)
[2017-08-20] MEDS: Gabapentin 100 MG CAPSULE PO SCH (21:35)
[2017-08-21] MEDS: metroNIDAZOLE 500 MG TABLET PO SCH ×4 (04:50→21:26)
[2017-08-21] MEDS: *HR* HYDROcodone/Acet 5/325 mg TABLET PO PRN ×2 (04:56→13:09)
[2017-08-21] MEDS: *HR* Heparin 5,000 UNIT/ML VIAL SQ SCH ×3 (04:58→21:27)
[2017-08-21] MEDS ORDERED: Furosemide 40 MG/4 ML VIAL IVP ONE (09:00)
[2017-08-21] MEDS: Linezolid 600 MG TABLET PO SCH ×2 (10:40→21:25)
[2017-08-21] MEDS: Magnesium Oxide 400 MG TABLET PO SCH ×2 (10:41→21:26)
[2017-08-21] MEDS: Fluticasone Propionate Nasal 50 MCG/SPRAY BOTTLE NS SCH (10:41)
[2017-08-21] MEDS: Nystatin POWDER 30 GM BOTTLE TP SCH ×2 (10:41→21:28)
[2017-08-21] MEDS: Silvasorb 44.4 ML TUBE TP SCH (10:41)
--- NOTE | 2017-08-21 14:12 | Internal Med Progress Note ---
Date of Encounter: 08/21/17 Time of Encounter: 14:10 - Assessment and plan (1) Morbid obesity with BMI of 50.0-59.9, adult Current Visit: Yes Status: Chronic Assessment and plan: work [facility] dietary for education. (2) Atrial fibrillation Current Visit: Yes Status: Chronic Qualifiers: Atrial fibrillation type: paroxysmal Qualified Code(s): I48.0 - Paroxysmal atrial fibrillation (3) Diabetes Current Visit: Yes Status: Chronic Assessment and plan: controlled with current meds. monitor FSBS. will adjust as necessary. Qualifiers: Diabetes mellitus type: type 2 Diabetes mellitus nursing home insulin use: without nursing home use Diabetes mellitus complication status: with hyperglycemia Qualified Code(s): E11.65 - Type 2 diabetes mellitus with hyperglycemia (4) Clostridium difficile diarrhea Current Visit: Yes Status: Acute Assessment and plan: flagyl started. will monitor for improvement. (5) Chronic diastolic (congestive) heart failure Current Visit: No Status: Chronic Assessment and plan: lasix given IV for increased pedal edema. monitor. - Time Spent With Patient less than 15 minutes - Subjective Interval history: participating with therapy. c/o nausea. no vomitting. bowels moving several times a day. + for cdif, flagyl started. decrease appetite. maintaining hydration. lasix IV given this am for increased edema BLE. denies SOB, chest pain, fever, chills. denies pain. - Constitutional Vitals: Temp Pulse Resp BP Pulse Ox 98.2 F 81 16 99/59 97 08/21/17 07:00 08/21/17 07:00 08/21/17 07:00 08/21/17 07:00 08/21/17 07:00 General appearance: Present: cooperative, pleasant, obese, answers questions appropriately - Head Head exam: Present: atraumatic, normocephalic - Eye Eye exam: Present: PERRL, conjuntiva pink, sclera anicteric Pupils: Present: PERRL - Neck Neck exam general surgery: Present: supple, trachea midline. Absent: lymphadenopathy - Respiratory Respiratory exam: Present: CTAB. Absent: accessory muscle use, rales, rhonchi, wheezes - Cardiovascular Cardiovascular exam: Present: RRR, +S1, +S2. Absent: diastolic murmur, gallop, rubs, systolic murmur - GI/Abdominal GI/Abdominal exam: Present: normal bowel sounds, soft, no peritoneal signs. Absent: distended, tenderness - Extremities Exam Extremities exam: Present: pedal edema, warm, radial pulses palpable and symmetrical. Absent: calf tenderness, cyanotic - Neurological Exam Neurological exam: Present: CN II-XII intact, oriented X3, no focal deficits. Absent: pronater drift, facial droop, speech deficit - Skin Skin exam: Present: dry, intact Internal Medicine: Result - Labs CBC & Chem 7: 08/20/17 06:56 08/20/17 06:56 - VTE Documentation of Mechanical Device: Graduated compression elastic hosiery Consult Discharge Plan - Plan Instructions: Clostridium Difficile Infection (DC) Referrals: NONE,PCP [Primary Care Provider] -
[2017-08-21] MEDS: Gabapentin 100 MG CAPSULE PO SCH (21:28)
[2017-08-22] MEDS: metroNIDAZOLE 500 MG TABLET PO SCH ×4 (05:02→21:50)
[2017-08-22] MEDS: *HR* Heparin 5,000 UNIT/ML VIAL SQ SCH ×3 (05:03→21:51)
[2017-08-22] MEDS: Magnesium Oxide 400 MG TABLET PO SCH ×3 (08:46→21:50)
[2017-08-22] MEDS: Fluconazole 100 MG TABLET PO SCH ×2 (08:47→11:11)
[2017-08-22] MEDS: Nystatin POWDER 30 GM BOTTLE TP SCH ×2 (08:48→21:52)
[2017-08-22] MEDS: Silvasorb 44.4 ML TUBE TP SCH (08:48)
[2017-08-22] MEDS: Fluticasone Propionate Nasal 50 MCG/SPRAY BOTTLE NS SCH (08:48)
[2017-08-22] MEDS: Linezolid 600 MG TABLET PO SCH ×2 (11:11→21:51)
[2017-08-22] MEDS: Ondansetron 4 MG/2 ML VIAL IVP PRN (11:35)
--- NOTE | 2017-08-22 11:35 | Internal Med Progress Note ---
Date of Encounter: 08/22/17 Time of Encounter: 11:33 - Assessment and plan (1) Physical deconditioning Current Visit: No Status: Acute Assessment and plan: Continue PT\OT. Will follow for progress. (2) Morbid obesity with BMI of 50.0-59.9, adult Current Visit: Yes Status: Chronic Assessment and plan: work with dietary for education. (3) Atrial fibrillation Current Visit: Yes Status: Chronic Assessment and plan: Rate and rhythm controlled. Continue current medications. Qualifiers: Atrial fibrillation type: paroxysmal Qualified Code(s): I48.0 - Paroxysmal atrial fibrillation (4) Diabetes Current Visit: Yes Status: Chronic Assessment and plan: controlled with current meds. monitor FSBS. will adjust as necessary. Qualifiers: Diabetes mellitus type: type 2 Diabetes mellitus rn long term care insulin use: without senior care use Diabetes mellitus complication status: with hyperglycemia Qualified Code(s): E11.65 - Type 2 diabetes mellitus with hyperglycemia (5) Clostridium difficile diarrhea Current Visit: Yes Status: Acute Assessment and plan: flagyl started. will monitor for improvement. (6) Chronic diastolic (congestive) heart failure Current Visit: No Status: Chronic Assessment and plan: lasix given IV for increased pedal edema. monitor. Will follow labs (7) Abdominal cramping Current Visit: Yes Status: Acute Assessment and plan: bentyl ordered PRN. Will monitor - Time Spent With Patient 25 - 35 minutes - Subjective Interval history: c/o nausea and vomitting. Denies any diarrhea last night or today. On Flagyl for CVA . decrease appetite. maintaining hydration. lasix IV given yesterday for increased edema BLE with slight improvement. denies SOB, chest pain, fever, chills. denies pain. Complaining of abdominal pain and cramping. Will order Bentyl. - Constitutional Vitals: Temp Pulse Resp BP Pulse Ox 98 F 89 18 107/61 95 08/22/17 07:00 08/22/17 07:00 08/22/17 07:00 08/22/17 07:00 08/22/17 07:00 General appearance: Present: cooperative, A&O X 3, pleasant, obese, answers questions appropriately - Head Head exam: Present: atraumatic, normocephalic - Eye Eye exam: Present: PERRL, conjuntiva pink, sclera anicteric Pupils: Present: PERRL - Neck Neck exam general surgery: Present: supple, trachea midline. Absent: lymphadenopathy - Respiratory Respiratory exam: Present: CTAB. Absent: accessory muscle use, rales, rhonchi, wheezes - Cardiovascular Cardiovascular exam: Present: RRR, +S1, +S2. Absent: diastolic murmur, gallop, rubs, systolic murmur - GI/Abdominal GI/Abdominal exam: Present: hyperactive bowel sounds, normal bowel sounds, soft , no peritoneal signs. Absent: distended, tenderness - Extremities Exam Extremities exam: Present: pedal edema, warm, radial pulses palpable and symmetrical. Absent: calf tenderness, cyanotic Additional comments: Nonpitting edema to bilateral lower extremities. - Neurological Exam Neurological exam: Present: CN II-XII intact, oriented X3, no focal deficits. Absent: pronater drift, facial droop, speech deficit - Skin Skin exam: Present: dry, intact Internal Medicine: Result - Labs CBC & Chem 7: 08/20/17 06:56 08/20/17 06:56 - VTE Documentation of Mechanical Device: Graduated compression elastic hosiery Consult Discharge Plan - Plan Instructions: Clostridium Difficile Infection (DC) Referrals: NONE,PCP [Primary Care Provider] -
[2017-08-22] MEDS: Gabapentin 100 MG CAPSULE PO SCH (17:45)
[2017-08-23] MEDS: metroNIDAZOLE 500 MG TABLET PO SCH ×4 (05:15→23:45)
[2017-08-23] MEDS: *HR* Heparin 5,000 UNIT/ML VIAL SQ SCH ×3 (05:15→23:45)
[2017-08-23 07:42] LABS: Basophils % 0.3 %; Eosinophils # 0.4 K/mcL (0.0-0.6); Eosinophils % 5.9 %; Hematocrit 30.8 % (35.3-44.9); Hemoglobin 10.6 g/dL (11.5-15.4); Immature Granulocytes % 0.2 % (0-4); Lymphocytes # 2.6 K/mcL (0.6-4.6); Lymphocytes % 43.6 %; Mean Corpuscular HGB Conc 34.4 g/dL (31.6-35.5); Mean Corpuscular Hemoglobin 30.6 pg (28.0-33.3); Mean Platelet Volume 10.4 fL (9.4-12.4); Monocytes # 0.4 K/mcL (0.0-1.3); Monocytes % 6.2 %; Neutrophils # 2.6 K/mcL (1.6-8.9); Platelet Count 127 K/mcL (140-400); Red Blood Count 3.46 M/mcL (3.82-4.97); Red Cell Distribution Width 15.3 % (11.5-14.5); Segmented Neutrophils % 43.8 %
[2017-08-23 08:31] LABS: Platelet Estimate Decreased (Normal)
[2017-08-23] MEDS: Nystatin POWDER 30 GM BOTTLE TP SCH (10:41)
[2017-08-23] MEDS: Linezolid 600 MG TABLET PO SCH ×2 (10:41→23:45)
[2017-08-23] MEDS: Fluconazole 100 MG TABLET PO SCH (10:41)
[2017-08-23] MEDS: Fluticasone Propionate Nasal 50 MCG/SPRAY BOTTLE NS SCH (10:41)
[2017-08-23] MEDS: Magnesium Oxide 400 MG TABLET PO SCH ×2 (10:41→23:45)
[2017-08-23] MEDS: Silvasorb 44.4 ML TUBE TP SCH (10:42)
[2017-08-23 12:11] LABS: BUN/Creatinine Ratio 14 (6-26); Blood Urea Nitrogen 9 mg/dL (8-23); Calcium 8.1 mg/dL (8.6-10.3); Carbon Dioxide 23 mEq/L (23-29); Chloride 105 mEq/L (98-107); Glucose 104 mg/dL (70-105); Osmolality,Calculated 287 (280-300); Sodium 139 mEq/L (136-145); eGFR For African Americans > 60 (> 60); eGFR For Non-African Americans > 60 (> 60)
--- NOTE | 2017-08-23 15:00 | Electrocardiograph Report ---
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
--- NOTE | 2017-08-23 16:13 | Internal Med Progress Note ---
Date of Encounter: 08/23/17 Time of Encounter: 16:06 - Assessment and plan (1) Clostridium difficile diarrhea Current Visit: Yes Status: Acute Assessment and plan: Patient continues with diarrhea which has decreased in frequency. We will discontinue Flagyl and start patient on oral vancomycin. Patient remains afebrile and denies any abdominal cramping. (2) Pyelonephritis Current Visit: Yes Status: Acute Assessment and plan: No acute issues. Patient does continue to complain of nausea. Patient denies any dysuria. Patient has been on Zyvox for 14 days and we will discontinue after tomorrow's dosing. Patient to have a lithotripsy performed, but has been delayed until she has been treated with her C. difficile.. Afebrile. We will continue with current plan of care (3) Nausea Current Visit: Yes Status: Chronic Assessment and plan: Patient continues to have intermittent nausea. No reported vomiting. We will continue with Zofran when necessary. Lipase/amylase was normal. (4) Chronic diastolic (congestive) heart failure Current Visit: No Status: Chronic Assessment and plan: No acute issues. Lungs are clear throughout. No complaints of dyspnea or productive cough. No palpitations. We will continue with current medications. (5) Skin breakdown Current Visit: Yes Status: Acute Assessment and plan: Sacral shearing type breakdown the sacrum. Will continue with frequent repositioning and will apply dressing. - Time Spent With Patient less than 15 minutes - Subjective Interval history: Patient currently has complaints of continued intermittent nausea and generalized weakness. Patient states she has not vomited today but recently vomited yesterday. Patient states that food or taking oral medications as triggered or nausea. Patient also has complaints of diarrhea, but states that the frequency has diminished. Patient recently diagnosed with C. difficile. Nurse reports patient has been refusing therapy and some of her medications. Patient with a history of anxiety and panic attacks. Currently patient appears relaxed. Earlier in shift patient had a episode in which she complained of chest pain with radiation to the left shoulder. Patient's pain only lasted several minutes and was relieved prior to any intervention. EKG was obtained which showed normal sinus rhythm and no signs of ischemia noted. - Constitutional Vitals: Temp Pulse Resp BP Pulse Ox 97.1 F L 97 18 113/67 94 08/23/17 11:45 08/23/17 11:45 08/23/17 11:45 08/23/17 11:45 08/23/17 08:15 General appearance: Present: cooperative, A&O X 3, pleasant, obese, answers questions appropriately - Head Head exam: Present: atraumatic, normocephalic - Eye Eye exam: Present: PERRL, conjuntiva pink, sclera anicteric Pupils: Present: PERRL - Neck Neck exam general surgery: Present: supple, trachea midline. Absent: lymphadenopathy - Respiratory Respiratory exam: Present: CTAB. Absent: accessory muscle use, rales, rhonchi, wheezes - Cardiovascular Cardiovascular exam: Present: RRR, +S1, +S2. Absent: diastolic murmur, gallop, rubs, systolic murmur - GI/Abdominal GI/Abdominal exam: Present: normal bowel sounds, soft, no peritoneal signs. Absent: distended, tenderness - Extremities Exam Extremities exam: Present: warm, radial pulses palpable and symmetrical. Absent : calf tenderness, cyanotic, pedal edema Additional comments: Patient was +1 edema to bilateral legs - Neurological Exam Neurological exam: Present: CN II-XII intact, oriented X3, no focal deficits. Absent: pronater drift, facial droop, speech deficit - Skin Skin exam: Present: dry, intact Internal Medicine: Result - Labs CBC & Chem 7: 08/23/17 07:00 08/23/17 07:00 Labs: Short CBC 08/23/17 Range/Units 07:00 WBC 6.0 (4.3-11.1) K/mcL Hgb 10.6 L (11.5-15.4) g/dL Hct 30.8 L (35.3-44.9) % Plt Count 127 L (140-400) K/mcL Neutrophils # 2.6 (1.6-8.9) K/mcL BMP 08/23/17 07:00 Sodium 139 Potassium 3.0 L Chloride 105 Carbon Dioxide 23 BUN 9 Creatinine 0.63 Glucose 104 Calcium 8.1 L - VTE Documentation of Mechanical Device: Graduated compression elastic hosiery Consult Discharge Plan - Plan Instructions: Clostridium Difficile Infection (DC) Referrals: NONE,PCP [Primary Care Provider] -
[2017-08-23] MEDS: Vancomycin Oral Soln 250 MG/5 ML UDC PO SCH ×2 (18:46→23:43)
[2017-08-23] MEDS: ALPRAZolam 0.25 MG TABLET PO PRN (23:44)
[2017-08-24] MEDS: Nystatin POWDER 30 GM BOTTLE TP SCH ×3 (02:04→20:47)
[2017-08-24] MEDS: metroNIDAZOLE 500 MG TABLET PO SCH ×4 (05:20→20:23)
[2017-08-24] MEDS: *HR* Heparin 5,000 UNIT/ML VIAL SQ SCH ×3 (05:20→20:23)
[2017-08-24] MEDS: Fluconazole 100 MG TABLET PO SCH (10:16)
[2017-08-24] MEDS: Aspirin Enteric Coated 81 MG Tablet PO SCH (10:17)
[2017-08-24] MEDS: Linezolid 600 MG TABLET PO SCH ×2 (10:18→20:18)
[2017-08-24] MEDS: Magnesium Oxide 400 MG TABLET PO SCH ×2 (10:18→20:19)
[2017-08-24] MEDS: Fluticasone Propionate Nasal 50 MCG/SPRAY BOTTLE NS SCH (10:18)
[2017-08-24] MEDS: Vancomycin Oral Soln 250 MG/5 ML UDC PO SCH ×4 (10:19→20:19)
[2017-08-24] MEDS: Silvasorb 44.4 ML TUBE TP SCH (10:19)
[2017-08-24] MEDS: ALPRAZolam 0.25 MG TABLET PO PRN (10:33)
[2017-08-25] MEDS: metroNIDAZOLE 500 MG TABLET PO SCH ×4 (05:18→21:25)
[2017-08-25] MEDS: *HR* Heparin 5,000 UNIT/ML VIAL SQ SCH ×3 (05:18→21:24)
[2017-08-25] MEDS: Vancomycin Oral Soln 250 MG/5 ML UDC PO SCH ×4 (08:18→21:23)
[2017-08-25] MEDS: ALPRAZolam 0.25 MG TABLET PO PRN (08:18)
[2017-08-25] MEDS: Fluticasone Propionate Nasal 50 MCG/SPRAY BOTTLE NS SCH (08:20)
[2017-08-25] MEDS: Fluconazole 100 MG TABLET PO SCH (10:10)
[2017-08-25] MEDS: Aspirin Enteric Coated 81 MG Tablet PO SCH (10:10)
[2017-08-25] MEDS: Magnesium Oxide 400 MG TABLET PO SCH ×2 (10:11→21:24)
[2017-08-25] MEDS: Nystatin POWDER 30 GM BOTTLE TP SCH ×2 (10:11→21:25)
[2017-08-25] MEDS: Silvasorb 44.4 ML TUBE TP SCH (10:11)
[2017-08-25 11:12] LABS: BUN/Creatinine Ratio 14 (6-26); Blood Urea Nitrogen 11 mg/dL (8-23); Calcium 8.4 mg/dL (8.6-10.3); Carbon Dioxide 25 mEq/L (23-29); Chloride 103 mEq/L (98-107); Glucose 122 mg/dL (70-105); Osmolality,Calculated 287 (280-300); Potassium 2.8 mEq/L (3.5-5.1); Sodium 138 mEq/L (136-145); eGFR For African Americans > 60 (> 60); eGFR For Non-African Americans > 60 (> 60)
[2017-08-25] MEDS: Furosemide 40 MG TABLET PO PRN (21:24)
[2017-08-26] MEDS ORDERED: Furosemide 40 MG/4 ML VIAL IVP ONE (04:00)
[2017-08-26] MEDS: metroNIDAZOLE 500 MG TABLET PO SCH ×4 (04:23→21:22)
[2017-08-26] MEDS: *HR* Heparin 5,000 UNIT/ML VIAL SQ SCH ×3 (04:23→21:21)
[2017-08-26] MEDS: Fluticasone Propionate Nasal 50 MCG/SPRAY BOTTLE NS SCH (09:11)
[2017-08-26] MEDS: Vancomycin Oral Soln 250 MG/5 ML UDC PO SCH ×4 (09:11→21:21)
[2017-08-26] MEDS: Aspirin Enteric Coated 81 MG Tablet PO SCH (10:08)
[2017-08-26] MEDS: Fluconazole 100 MG TABLET PO SCH (10:08)
[2017-08-26] MEDS: Magnesium Oxide 400 MG TABLET PO SCH ×2 (10:08→21:21)
[2017-08-26] MEDS: Silvasorb 44.4 ML TUBE TP SCH (10:42)
[2017-08-26] MEDS: Nystatin POWDER 30 GM BOTTLE TP SCH ×2 (10:42→21:22)
[2017-08-27] MEDS: metroNIDAZOLE 500 MG TABLET PO SCH ×4 (04:29→21:10)
[2017-08-27] MEDS: *HR* Heparin 5,000 UNIT/ML VIAL SQ SCH ×3 (04:29→21:10)
[2017-08-27 06:04] LABS: Basophils % 0.4 %; Eosinophils # 0.3 K/mcL (0.0-0.6); Eosinophils % 5.9 %; Hematocrit 30.8 % (35.3-44.9); Hemoglobin 10.5 g/dL (11.5-15.4); Immature Granulocytes % 0.2 % (0-4); Lymphocytes # 2.4 K/mcL (0.6-4.6); Lymphocytes % 44.9 %; Mean Corpuscular HGB Conc 34.1 g/dL (31.6-35.5); Mean Corpuscular Hemoglobin 30.4 pg (28.0-33.3); Mean Corpuscular Volume 89.3 fL (83.0-100.0); Mean Platelet Volume 10.4 fL (9.4-12.4); Monocytes # 0.4 K/mcL (0.0-1.3); Monocytes % 7.4 %; Neutrophils # 2.2 K/mcL (1.6-8.9); Platelet Count 101 K/mcL (140-400); Red Blood Count 3.45 M/mcL (3.82-4.97); Red Cell Distribution Width 15.6 % (11.5-14.5); Segmented Neutrophils % 41.2 %
[2017-08-27 06:19] LABS: BUN/Creatinine Ratio 20 (6-26); Blood Urea Nitrogen 12 mg/dL (8-23); Calcium 8.3 mg/dL (8.6-10.3); Carbon Dioxide 27 mEq/L (23-29); Chloride 103 mEq/L (98-107); Glucose 113 mg/dL (70-105); Osmolality,Calculated 287 (280-300); Sodium 138 mEq/L (136-145); eGFR For African Americans > 60 (> 60); eGFR For Non-African Americans > 60 (> 60)
[2017-08-27] MEDS: Magnesium Oxide 400 MG TABLET PO SCH ×2 (09:43→21:10)
[2017-08-27] MEDS: Aspirin Enteric Coated 81 MG Tablet PO SCH (09:43)
[2017-08-27] MEDS: Vancomycin Oral Soln 250 MG/5 ML UDC PO SCH ×4 (09:44→21:10)
[2017-08-27] MEDS: Nystatin POWDER 30 GM BOTTLE TP SCH ×2 (09:45→21:10)
[2017-08-27] MEDS: Silvasorb 44.4 ML TUBE TP SCH (09:45)
[2017-08-27] MEDS: Fluticasone Propionate Nasal 50 MCG/SPRAY BOTTLE NS SCH (09:45)
[2017-08-27] MEDS: Fluconazole 100 MG TABLET PO SCH (09:58)
--- NOTE | 2017-08-27 10:15 | Internal Med Progress Note ---
Date of Encounter: 08/27/17 Time of Encounter: 10:11 - Assessment and plan (1) Physical deconditioning Current Visit: No Status: Acute Assessment and plan: Continue PT\OT. Will follow for progress. (2) Atrial fibrillation Current Visit: Yes Status: Chronic Assessment and plan: Rate and rhythm controlled. Continue current medications. Qualifiers: Atrial fibrillation type: paroxysmal Qualified Code(s): I48.0 - Paroxysmal atrial fibrillation (3) Diabetes Current Visit: Yes Status: Chronic Assessment and plan: controlled with current meds. monitor FSBS. will adjust as necessary. Qualifiers: Diabetes mellitus type: type 2 Diabetes mellitus terminal superintendent insulin use: without terminal superintendent use Diabetes mellitus complication status: with hyperglycemia Qualified Code(s): E11.65 - Type 2 diabetes mellitus with hyperglycemia (4) Clostridium difficile diarrhea Current Visit: Yes Status: Acute Assessment and plan: flagyl started. will monitor for improvement. will repeat stool for c-diff culture tomorrow (5) Chronic diastolic (congestive) heart failure Current Visit: No Status: Chronic Assessment and plan: lasix given IV for increased pedal edema. monitor. Will follow labs (6) Hypokalemia Current Visit: Yes Status: Acute Assessment and plan: continues to refuse K+ supplement despite education of risks for hypokalemia. was given lasix IV over yesterday. will monitor labs. - Time Spent With Patient 25 - 35 minutes - Subjective Interval history: c/o nausea this am without vomitting. improved with zofran. Denies any diarrhea last night or today. continues to be on flagyl for c-diff. will repeat culture tomorrow. maintaining hydration. lasix IV given yesterday for increased edema BLE with improvement today. denies SOB, chest pain, fever, chills. denies pain. discussed hypokalemia with patient. continues to refuse K supplement. - Constitutional Vitals: Temp Pulse Resp BP Pulse Ox 98.4 F 89 20 127/90 94 08/27/17 07:58 08/27/17 07:58 08/27/17 07:58 08/27/17 07:58 08/27/17 07:58 General appearance: Present: cooperative, A&O X 3, pleasant, obese, answers questions appropriately - Head Head exam: Present: atraumatic, normocephalic - Eye Eye exam: Present: PERRL, conjuntiva pink, sclera anicteric Pupils: Present: PERRL - Neck Neck exam general surgery: Present: supple, trachea midline. Absent: lymphadenopathy - Respiratory Respiratory exam: Present: CTAB. Absent: accessory muscle use, rales, rhonchi, wheezes - Cardiovascular Cardiovascular exam: Present: RRR, +S1, +S2. Absent: diastolic murmur, gallop, rubs, systolic murmur - GI/Abdominal GI/Abdominal exam: Present: normal bowel sounds, soft, no peritoneal signs. Absent: distended, tenderness - Extremities Exam Extremities exam: Present: warm, radial pulses palpable and symmetrical. Absent : calf tenderness, cyanotic, pedal edema Additional comments: nonpitting edema to BLE - Neurological Exam Neurological exam: Present: CN II-XII intact, oriented X3, no focal deficits. Absent: pronater drift, facial droop, speech deficit - Skin Skin exam: Present: dry, intact Internal Medicine: Result - Labs CBC & Chem 7: 08/27/17 05:41 08/27/17 05:41 Labs: Short CBC 08/27/17 Range/Units 05:41 WBC 5.4 (4.3-11.1) K/mcL Hgb 10.5 L (11.5-15.4) g/dL Hct 30.8 L (35.3-44.9) % Plt Count 101 L (140-400) K/mcL Neutrophils # 2.2 (1.6-8.9) K/mcL BMP 08/27/17 05:41 Sodium 138 Potassium 3.0 L Chloride 103 Carbon Dioxide 27 BUN 12 Creatinine 0.61 Glucose 113 H Calcium 8.3 L - VTE Documentation of Mechanical Device: Graduated compression elastic hosiery Consult Discharge Plan - Plan Instructions: Clostridium Difficile Infection (DC) Referrals: NONE,PCP [Primary Care Provider] -
[2017-08-27] MEDS: *HR* HYDROcodone/Acet 5/325 mg TABLET PO PRN (11:43)
[2017-08-27] MEDS: Ondansetron 4 MG/2 ML VIAL IVP PRN (16:44)
[2017-08-28] MEDS: *HR* Heparin 5,000 UNIT/ML VIAL SQ SCH ×3 (04:48→21:44)
[2017-08-28] MEDS: metroNIDAZOLE 500 MG TABLET PO SCH ×4 (04:48→21:45)
[2017-08-28] MEDS: Ondansetron ODT 4 MG TAB.RAPDIS SL PRN (04:53)
[2017-08-28] MEDS: Ondansetron 4 MG/2 ML VIAL IVP PRN (07:59)
[2017-08-28] MEDS: Fluconazole 100 MG TABLET PO SCH (09:42)
[2017-08-28] MEDS: Magnesium Oxide 400 MG TABLET PO SCH ×2 (09:42→21:45)
[2017-08-28] MEDS: Nystatin POWDER 30 GM BOTTLE TP SCH ×2 (11:46→21:45)
[2017-08-28] MEDS: Fluticasone Propionate Nasal 50 MCG/SPRAY BOTTLE NS SCH (11:46)
[2017-08-28] MEDS: Vancomycin Oral Soln 250 MG/5 ML UDC PO SCH ×4 (11:46→21:45)
[2017-08-28] MEDS: Aspirin Enteric Coated 81 MG Tablet PO SCH (11:46)
[2017-08-28] MEDS: Silvasorb 44.4 ML TUBE TP SCH (11:46)
--- NOTE | 2017-08-28 15:50 | Internal Med Progress Note ---
Date of Encounter: 08/28/17 Time of Encounter: 15:47 - Assessment and plan (1) Physical deconditioning Current Visit: No Status: Acute Assessment and plan: Continue PT\OT. Will follow for progress. (2) Atrial fibrillation Current Visit: Yes Status: Chronic Assessment and plan: Rate and rhythm controlled. Continue current medications. Qualifiers: Atrial fibrillation type: paroxysmal Qualified Code(s): I48.0 - Paroxysmal atrial fibrillation (3) Diabetes Current Visit: Yes Status: Chronic Assessment and plan: controlled with current meds. monitor FSBS. will adjust as necessary. Qualifiers: Diabetes mellitus type: type 2 Diabetes mellitus terminal make up operator insulin use: without half-way use Diabetes mellitus complication status: with hyperglycemia Qualified Code(s): E11.65 - Type 2 diabetes mellitus with hyperglycemia (4) Chronic diastolic (congestive) heart failure Current Visit: Yes Status: Chronic Assessment and plan: stable monitor. Will follow labs (5) Hypokalemia Current Visit: Yes Status: Acute Assessment and plan: continues to refuse K+ supplement despite education of risks for hypokalemia. will monitor labs. - Time Spent With Patient 25 - 35 minutes - Subjective Interval history: c/o nausea this am without vomitting. improved with zofran. Denies any diarrhea last night or today. maintaining hydration. denies SOB, chest pain, fever, chills. denies pain. discussed hypokalemia with patient. continues to refuse K supplement. taking a lot of encouragement to participate with therapy. - Constitutional Vitals: Temp Pulse Resp BP Pulse Ox 98.1 F 88 16 106/62 94 08/28/17 07:21 08/28/17 07:21 08/28/17 07:21 08/28/17 07:21 08/28/17 07:21 General appearance: Present: cooperative, A&O X 3, pleasant, obese, answers questions appropriately - Head Head exam: Present: atraumatic, normocephalic - Eye Eye exam: Present: PERRL, conjuntiva pink, sclera anicteric Pupils: Present: PERRL - Neck Neck exam general surgery: Present: supple, trachea midline. Absent: lymphadenopathy - Respiratory Respiratory exam: Present: CTAB. Absent: accessory muscle use, rales, rhonchi, wheezes - Cardiovascular Cardiovascular exam: Present: RRR, +S1, +S2. Absent: diastolic murmur, gallop, rubs, systolic murmur - GI/Abdominal GI/Abdominal exam: Present: normal bowel sounds, soft, no peritoneal signs. Absent: distended, tenderness - Extremities Exam Extremities exam: Present: warm, radial pulses palpable and symmetrical. Absent : calf tenderness, cyanotic, pedal edema Additional comments: nonpitting edema to BLE. - Neurological Exam Neurological exam: Present: CN II-XII intact, oriented X3, no focal deficits. Absent: pronater drift, facial droop, speech deficit - Skin Skin exam: Present: dry, intact Internal Medicine: Result - Labs CBC & Chem 7: 08/27/17 05:41 08/27/17 05:41 - VTE Documentation of Mechanical Device: Graduated compression elastic hosiery Consult Discharge Plan - Plan Instructions: Clostridium Difficile Infection (DC) Referrals: Deejay Becker [Partnered Physician] - 09/04/17 1:50 pm NONE,PCP [Primary Care Provider] - Christopher Lucas MD [Partnered Physician] - 09/14/17 1:00 pm
[2017-08-28] MEDS: Furosemide 40 MG TABLET PO PRN (21:45)
[2017-08-28] MEDS: ALPRAZolam 0.25 MG TABLET PO PRN (22:02)
[2017-08-29] MEDS: metroNIDAZOLE 500 MG TABLET PO SCH ×4 (04:45→22:23)
[2017-08-29] MEDS: *HR* Heparin 5,000 UNIT/ML VIAL SQ SCH ×3 (04:45→22:23)
[2017-08-29 07:25] LABS: Basophils % 0.5 %; Eosinophils # 0.5 K/mcL (0.0-0.6); Eosinophils % 7.2 %; Hematocrit 29.6 % (35.3-44.9); Hemoglobin 10.1 g/dL (11.5-15.4); Immature Granulocytes % 0.5 % (0-4); Lymphocytes # 2.4 K/mcL (0.6-4.6); Lymphocytes % 37.8 %; Mean Corpuscular HGB Conc 34.1 g/dL (31.6-35.5); Mean Corpuscular Hemoglobin 30.7 pg (28.0-33.3); Mean Platelet Volume 10.9 fL (9.4-12.4); Monocytes # 0.7 K/mcL (0.0-1.3); Monocytes % 11.8 %; Neutrophils # 2.7 K/mcL (1.6-8.9); Platelet Count 108 K/mcL (140-400); Red Blood Count 3.29 M/mcL (3.82-4.97); Red Cell Distribution Width 15.5 % (11.5-14.5); Segmented Neutrophils % 42.2 %
[2017-08-29 07:55] LABS: BUN/Creatinine Ratio 15 (6-26); Blood Urea Nitrogen 10 mg/dL (8-23); Calcium 8.3 mg/dL (8.6-10.3); Carbon Dioxide 30 mEq/L (23-29); Chloride 103 mEq/L (98-107); Glucose 119 mg/dL (70-105); Osmolality,Calculated 288 (280-300); Potassium 2.8 mEq/L (3.5-5.1); Sodium 139 mEq/L (136-145); eGFR For African Americans > 60 (> 60); eGFR For Non-African Americans > 60 (> 60)
[2017-08-29] MEDS: Fluconazole 100 MG TABLET PO SCH (09:41)
[2017-08-29] MEDS: Silvasorb 44.4 ML TUBE TP SCH (09:42)
[2017-08-29] MEDS: Aspirin Enteric Coated 81 MG Tablet PO SCH (09:42)
[2017-08-29] MEDS: Nystatin POWDER 30 GM BOTTLE TP SCH ×2 (09:42→22:25)
[2017-08-29] MEDS: Fluticasone Propionate Nasal 50 MCG/SPRAY BOTTLE NS SCH (09:42)
[2017-08-29] MEDS: Magnesium Oxide 400 MG TABLET PO SCH ×2 (09:42→22:23)
[2017-08-29] MEDS: Vancomycin Oral Soln 250 MG/5 ML UDC PO SCH ×4 (09:43→22:25)
[2017-08-29] MEDS: ALPRAZolam 0.25 MG TABLET PO PRN (13:05)
--- NOTE | 2017-08-29 13:56 | Internal Med Progress Note ---
Date of Encounter: 08/29/17 Time of Encounter: 13:54 - Assessment and plan (1) Clostridium difficile diarrhea Current Visit: Yes Status: Acute Assessment and plan: Patient continues with diarrhea which has decreased in frequency. We will continue Flagyl and oral vancomycin. Labs from yesterday shows patient continues with + C diff. Patient remains afebrile and denies any abdominal cramping. Patient continues to have electrolyte imbalances, but refusing to take many of the oral meds, stating that she cannot take oral tablets. (2) Pyelonephritis Current Visit: Yes Status: Acute Assessment and plan: No acute issues. Patient does continue to complain of nausea. Patient denies any dysuria. Patient to have a lithotripsy performed, but has been delayed until she has been treated with her C. difficile.. Afebrile. We will continue with current plan of care (3) Nausea Current Visit: Yes Status: Chronic Assessment and plan: Patient continues to have intermittent nausea. No reported vomiting. We will continue with Zofran when necessary. Lipase/amylase was normal. (4) Chronic diastolic (congestive) heart failure Current Visit: Yes Status: Chronic Assessment and plan: No acute issues. Lungs are clear throughout. No complaints of dyspnea or productive cough. No palpitations. We will continue with current medications. (5) Skin breakdown Current Visit: Yes Status: Acute Assessment and plan: Sacral shearing type breakdown the sacrum. Will continue with frequent repositioning and will apply dressing. - Time Spent With Patient less than 15 minutes - Subjective Interval history: Patient currently has complaints of continued intermittent nausea and generalized weakness. Patient states that her nausea has improved over the last few days. Nurse reports patient has been refusing therapy and some of her medications. Patient education given on the importance of taking her medications such as her potassium and magnesium and she continues to refuse, stating that she has trouble swallowing pills. Patient informed that her potassium was 2.8 and that her magnesium is 1.6, which is likely contributing to her generalized muscle weakness. Patient states she understands but continues to refuse medications. Patient with a history of anxiety and panic attacks. Currently patient appears relaxed. - Constitutional Vitals: Temp Pulse Resp BP Pulse Ox 98.6 F 89 16 86/49 92 08/29/17 08:00 08/29/17 08:00 08/29/17 08:00 08/29/17 08:00 08/29/17 08:00 General appearance: Present: cooperative, A&O X 3, pleasant, obese, answers questions appropriately - Head Head exam: Present: atraumatic, normocephalic - Eye Eye exam: Present: PERRL, conjuntiva pink, sclera anicteric Pupils: Present: PERRL - Neck Neck exam general surgery: Present: supple, trachea midline. Absent: lymphadenopathy - Respiratory Respiratory exam: Present: CTAB. Absent: accessory muscle use, rales, rhonchi, wheezes - Cardiovascular Cardiovascular exam: Present: RRR, +S1, +S2. Absent: diastolic murmur, gallop, rubs, systolic murmur - GI/Abdominal GI/Abdominal exam: Present: normal bowel sounds, soft, no peritoneal signs. Absent: distended, tenderness Additional comments: abdomen remains soft, but slightly distended. - Extremities Exam Extremities exam: Present: warm, radial pulses palpable and symmetrical. Absent : calf tenderness, cyanotic, pedal edema - Neurological Exam Neurological exam: Present: CN II-XII intact, oriented X3, no focal deficits. Absent: pronater drift, facial droop, speech deficit - Skin Skin exam: Present: dry, intact Internal Medicine: Result - Labs CBC & Chem 7: 08/29/17 06:48 08/29/17 06:48 Labs: Short CBC 08/29/17 Range/Units 06:48 WBC 6.3 (4.3-11.1) K/mcL Hgb 10.1 L (11.5-15.4) g/dL Hct 29.6 L (35.3-44.9) % Plt Count 108 L (140-400) K/mcL Neutrophils # 2.7 (1.6-8.9) K/mcL BMP 08/29/17 06:48 Sodium 139 Potassium 2.8 L Chloride 103 Carbon Dioxide 30 H BUN 10 Creatinine 0.66 Glucose 119 H Calcium 8.3 L - VTE Documentation of Mechanical Device: Graduated compression elastic hosiery Consult Discharge Plan - Plan Instructions: Clostridium Difficile Infection (DC) Referrals: Deejay Becker [Partnered Physician] - 09/04/17 1:50 pm NONE,PCP [Primary Care Provider] - Christopher Lucas MD [Partnered Physician] - 09/14/17 1:00 pm
[2017-08-30] MEDS: *HR* Heparin 5,000 UNIT/ML VIAL SQ SCH (05:31)
[2017-08-30] MEDS: metroNIDAZOLE 500 MG TABLET PO SCH ×2 (05:32→12:03)
[2017-08-30 07:33] VITALS: BP 109/63
[2017-08-30] MEDS ORDERED: Vancomycin Oral Soln 125 MG/2.5 ML UDC PO SCH (09:40)
[2017-08-30] MEDS: Magnesium Oxide 400 MG TABLET PO SCH (12:02)
[2017-08-30] MEDS: Aspirin Enteric Coated 81 MG Tablet PO SCH (12:03)
[2017-08-30] MEDS: Fluconazole 100 MG TABLET PO SCH (12:03)
[2017-08-30] MEDS: Silvasorb 44.4 ML TUBE TP SCH (12:05)
[2017-08-30] MEDS: Nystatin POWDER 30 GM BOTTLE TP SCH (12:05)
[2017-08-30] MEDS: Fluticasone Propionate Nasal 50 MCG/SPRAY BOTTLE NS SCH (12:12)
--- NOTE | 2017-08-30 14:18 | Discharge Summary ---
Orders not resulted at time of discharge: Pending orders 09/03/17 04:00 BMP [Basic Metabolic Panel] MO CBC [Complete Blood Count] [HEME] MO 09/10/17 04:00 BMP [Basic Metabolic Panel] MO CBC [Complete Blood Count] [HEME] MO 09/17/17 04:00 BMP [Basic Metabolic Panel] MO CBC [Complete Blood Count] [HEME] MO 09/24/17 04:00 BMP [Basic Metabolic Panel] MO CBC [Complete Blood Count] [HEME] MO 10/01/17 04:00 BMP [Basic Metabolic Panel] MO CBC [Complete Blood Count] [HEME] MO 10/08/17 04:00 BMP [Basic Metabolic Panel] MO CBC [Complete Blood Count] [HEME] MO 10/15/17 04:00 BMP [Basic Metabolic Panel] MO CBC [Complete Blood Count] [HEME] MO 10/22/17 04:00 BMP [Basic Metabolic Panel] MO CBC [Complete Blood Count] [HEME] MO Date of Encounter: 08/30/17 Time of Encounter: 14:13 - Discharge Diagnosis (1) Physical deconditioning Priority: Primary Status: Acute Comments: Will continue home physical therapy. Follow up with PCP. (2) Atrial fibrillation Priority: Secondary Status: Chronic Comments: Rate and rhythm controlled. Follow up with PCP. Qualifiers: Atrial fibrillation type: paroxysmal Qualified Code(s): I48.0 - Paroxysmal atrial fibrillation (3) Diabetes Priority: Secondary Status: Chronic Comments: Blood sugars controlled. Continue to monitor fingerstick blood sugars. Continue current meds. Follow up with PCP. Qualifiers: Diabetes mellitus type: type 2 Diabetes mellitus rodent exterminator insulin use: without rodent exterminator use Diabetes mellitus complication status: with hyperglycemia Qualified Code(s): E11.65 - Type 2 diabetes mellitus with hyperglycemia (4) Chronic diastolic (congestive) heart failure Priority: Secondary Status: Chronic Comments: Stable. Follow up with PCP. (5) Hypokalemia Priority: Primary Status: Acute Comments: Educated and informed of potassium level 2.8 yesterday. Patient continues to refuse medications. Hospital course: Ms. Doherty is a 66 year old female discharging to home with home health. Patient took a lot of encouragement to participate with therapy and refuse several times due to feeling nauseated. Patient was treated for status. Has not had any diarrhea in the past 5 days. Maintaining appetite and hydration. Denies fever, chills, nausea, vomiting, diarrhea, shortness of breath or chest pain. She has appointment with PCP on September 04. Have discussed hypokalemia with patient and she refuses medication. Discharge discussed with: patient, nurse - Time Spent with Patient Total time spent providing and/or coordinating discharge services: Greater than 30 minutes - Discharge Medications Home Medications: HYDROcodone/Acet 5/325 mg [[place] 5-325 mg] 1 tab PO Q6H PRN #28 tablet 02/23/17 [Rx] Furosemide [Lasix] 40 mg PO DAILY PRN 08/06/17 [History] Aspirin [Lo-Dose Aspirin EC] 81 mg PO DAILY 08/13/17 [History] Carvedilol [Coreg] 3.125 mg PO BIDWM #14 tablet 08/30/17 [Rx] Magnesium Oxide [Mag-Ox] 400 mg PO BID #14 tablet 08/30/17 [Rx] Nystatin POWDER [Nystop] 1 appl TP BID #1 bottle 08/30/17 [Rx] Ondansetron ODT [Zofran ODT] 4 mg SL Q6HR PRN #10 tab.rapdis 08/30/17 [Rx] Potassium Chloride 20 meq PO DAILY #7 tab.er.prt 08/30/17 [Rx] Promethazine [Phenergan] 25 mg PO Q6HR PRN #5 tablet 08/30/17 [Rx] Spironolactone [Aldactone] 50 mg PO DAILY #7 tablet 08/30/17 [Rx] Allergies/Adverse Reactions: 3 Allergy/AdvReac Type Severity Reaction Status Date / Time levofloxacin [From Levaquin] Allergy Hives Verified 08/16/17 16:24 Penicillins Allergy Blister Verified 08/16/17 16:24 prednisone Allergy See Verified 08/16/17 16:24 Comments Sulfa (Sulfonamide Allergy Hives Verified 08/16/17 16:24 Antibiotics) egg AdvReac Severe Throat Verified 08/16/17 16:24 swelling nitrofurantoin AdvReac Severe Bruising Verified 08/16/17 16:24 [From Macrobid] on arms Date of admission: 08/13/17 15:47 Primary care physician: PCP NONE Consults: 08/13/17 16:19 Consult to Occupational Therapy [CONS] Routine Comment: eval and treat Reason for Consult: weakness Does patient have active BEDREST order?: No Is patient medically & hemodynamically stable?: No Patient assessed for mobility or mobilized this visit?: Yes Consult to Physical Therapy [CONS] Routine Comment: eval and treat Reason for Consult: weakness Does patient have active BEDREST order?: No Is patient medically & hemodynamically stable?: No Patient assessed for mobility or mobilized this visit?: Yes Consult to Safe Deposit Attendant [CONS] Routine Reason for SW Consult: discharge planning 08/15/17 15:19 Consult to Physical Medicine/Rehab [CONS] Routine Reason for Consult: deconditioning Call Completed: Yes Discharging clinician: Michael Hammond Anticipated date of discharge: 08/30/17 - Constitutional Vitals: Temp Pulse Resp BP Pulse Ox 97.2 F L 94 16 109/63 97 08/30/17 07:33 08/30/17 07:33 08/30/17 07:33 08/30/17 07:33 08/30/17 07:33 General appearance: Present: cooperative, A&O X 3, pleasant, obese, answers questions appropriately - Head Head exam: Present: atraumatic, normocephalic - Eye Eye exam: Present: PERRL, conjuntiva pink, sclera anicteric Pupils: Present: PERRL - Neck Neck exam general surgery: Present: supple, trachea midline. Absent: lymphadenopathy - Respiratory Respiratory exam: Present: CTAB. Absent: accessory muscle use, rales, rhonchi, wheezes - Cardiovascular Cardiovascular exam: Present: RRR, +S1, +S2. Absent: diastolic murmur, gallop, rubs, systolic murmur - GI/Abdominal GI/Abdominal exam: Present: normal bowel sounds, soft, no peritoneal signs. Absent: distended, tenderness - Extremities Exam Extremities exam: Present: warm, radial pulses palpable and symmetrical. Absent : calf tenderness, cyanotic, pedal edema Additional comments: Non-pitting edema to bilateral lower extremities - Neurological Exam Neurological exam: Present: CN II-XII intact, oriented X3, no focal deficits. Absent: pronater drift, facial droop, speech deficit - Skin Skin exam: Present: dry, intact - Patient Status Disposition: Home Health Service Condition: Good Functional capacity at discharge: uses cane/walker Overall status at discharge: patient is progressing back to baseline - Discharge Instructions Instructions: Clostridium Difficile Infection (DC) Follow Up With: Deejay Becker [Partnered Physician] - 09/04/17 1:50 pm NONE,PCP [Primary Care Provider] - Christopher Lucas MD [Partnered Physician] - 09/14/17 1:00 pm - Diet and Activity Activity: as per physical therapy Diet: advance to your usual diet - VTE Documentation of Mechanical Device: Graduated compression elastic hosiery
[2017-08-30] MEDS: ALPRAZolam 0.25 MG TABLET PO PRN (15:54)
== END 2017-08-30 17:30 | disposition home health service (06) | DRG 945 ==
LOC: INPGRE 08-13 15:47